=== PATIENT | male | born 1995 | race American Indian/Alaskan Native ===

== ENCOUNTER 2018-03-16 12:44 | Emergency (ER) | payer MEDICAID, OTHER ==
[2018-03-16 12:57] VITALS: BP 117/64; PULSE 57; RESP 16; TEMP 98.7; O2SAT 99
[2018-03-16] MEDS ORDERED: Tdap Vaccine 0.5 ml Vial (10-64 yrs) IM ONE ×2 (12:59→13:09)
--- NOTE | 2018-03-16 13:02 | ED PDOC ---
HPI: General Adult Time Seen by Provider: 03/16/18 12:59 Chief Complaint (Nursing): Abnormal Skin Integrity Chief Complaint (Provider): skin abrasion History Per: Patient (23 y/o male here with wrist injury today after being scratched parveen nail on sunday. Unsure of last vaccination. Patient is here for tetanus vaccination.) Past Medical History Reviewed: Historical Data, Nursing Documentation, Vital Signs Vital Signs: Last Vital Signs Temp 98.7 F 03/16/18 12:55 Pulse 57 L 03/16/18 12:55 Resp 16 03/16/18 12:55 BP 117/64 03/16/18 12:55 Pulse Ox 99 03/16/18 12:55 - Family History Family History: States: No Known Family Hx - Allergies Allergies/Adverse Reactions: Allergies Allergy/AdvReac Type Severity Reaction Status Date / Time banana Allergy NAUSEA Verified 03/16/18 12:55 Review of Systems ROS Statement: Except As Marked, All Systems Reviewed And Found Negative Physical Exam - Reviewed Nursing Documentation Reviewed: Yes Vital Signs Reviewed: Yes - Physical Exam Appears: Positive for: Well, Non-toxic, No Acute Distress Head Exam: Positive for: ATRAUMATIC, NORMAL INSPECTION, NORMOCEPHALIC Skin: Positive for: Normal Color (No skin injury visible), Warm Eye Exam: Positive for: EOMI, Normal appearance, PERRL ENT: Positive for: Normal ENT Inspection Neck: Positive for: Normal, Painless ROM Cardiovascular/Chest: Positive for: Regular Rate, Rhythm Respiratory: Positive for: CNT, Normal Breath Sounds Gastrointestinal/Abdominal: Positive for: Normal Exam, Soft Back: Positive for: Normal Inspection Extremity: Positive for: Normal ROM Neurologic/Psych: Positive for: Alert, Oriented - ECG O2 Sat by Pulse Oximetry: 99 - Progress ED Course And Treament: Tdap 0.5 ml IM x 1 dose Disposition - Clinical Impression Clinical Impression: Skin abrasion - Patient ED Disposition Is Patient to be Admitted: No - Disposition Referrals: [facility] [Outside] Disposition: Routine/Home Disposition Time: 13:04 Condition: FAIR Instructions: Skin Abrasions (DC), Tdap Vaccine
== END 2018-03-16 13:10 | disposition home or self-care (01) ==
LOC: H.ER 12:44
DX: S60.811A Abrasion of right wrist, initial encounter (principal); W26.8XXA Contact with other sharp object(s), not elsewhere classified, initial encounter; Y99.0 Civilian activity done for income or pay; Z23 Encounter for immunization